=== PATIENT | male | born 1980 | race Caucasian/White ===

== ENCOUNTER 2018-06-14 07:00 | Day surgery (SDC) | payer OTHER ==
[~2018-06-14] VITALS: Ht 175.3 cm; Wt 96.2 kg
[~2018-06-14 07:00] MED LIST: NORCO 10-325 T1 EACH PO
--- NOTE | 2018-06-14 09:50 | NUR ---
06/14/18 0950 Latasha Soriano 0932 PATIENT ARRIVES TO PACU UNRESPONSIVE TO VERBAL OR PAINFUL STIMULI. RESP EVEN AND UNLABORED, MASK AT 10 LITERS, DECREASED TO 6 LITERS AFTER ARRIVAL TO PACU.
--- NOTE | 2018-06-14 10:10 | NUR ---
PT IS BACK TO FROM PACU. HE IS ACCOMPANIED BY [facility]SPORT OFFICER. HE IS AWAKE AND REQUESTING SPRITE AND CRACKERS. NO C/O'S PAIN. NO OTHER C/O'S AT THIS TIME. WILL REASSESS WITHIN THE HOUR.
[2018-06-14] MEDS ORDERED: ULTRAM50 MG PO (10:33)
--- NOTE | 2018-06-14 11:08 | NUR ---
PT REPORTS THAT HE IS READY TO GO. HE WOULD LIKE TO MAKE IT BACK TO [facility] BY LUNCH. NO OTHER C/O'S AT THIS TIME. WILL GET READY TO DC PATIENT.
--- NOTE | 2018-06-14 11:23 | NUR ---
PT IS GIVEN DC INSTRUCTIONS, HE VERBALIZES UNDERSTANDING. HE IS TAKEN OUT VIA WHEELCHAIR BY [facility]. REPORT IS CALLED TO [facility].
--- NOTE | 2018-06-16 07:04 | OR ---
[facility] [address], [place] [address] Signed DATE OF OPERATION: 06/14/2018 SURGEON: Keith Soria MD PREOPERATIVE DIAGNOSIS: Medial meniscal tear, right knee. POSTOPERATIVE DIAGNOSIS: Medial meniscal tear and partial tear of the ACL graft right knee with osteophyte formation in the apex of the intercondylar notch right knee. PROCEDURES: Right knee arthroscopy with partial medial meniscectomy, debridement of partial ACL tear and revision notchplasty. ANESTHESIA: General. SPECIMENS AND COMPLICATIONS: There were no specimens or complications. TOURNIQUET TIME: About 20 minutes. WHAT WAS DONE: The patient was taken to the operating room. After anesthesia was induced and airway secured, the patient was positioned, prepped and draped in a routine sterile fashion. The leg was exsanguinated with an Esmarch bandage. Pneumatic tourniquet was inflated to 300 mmHg pressure. The outflow cannula was inserted superomedially and the arthroscope anterolaterally. An anteromedial portal was created using transillumination and localization with a spinal needle. A nerve hook was introduced. Inspection of the knee revealed an unremarkable suprapatellar pouch. The medial recess was unremarkable. Medial compartment revealed a flap tear of the posterior horn of the medial meniscus right at the periphery. Intercondylar notch revealed some tearing of a portion of the previously placed ACL graft with some new impingement from new tissue ingrowth in the apex of the notch, which coli was impinging on the anterior wrap. However in about 30 degrees of flexion. He still had a completely negative Srikanth and the pivot shift maneuver was negative. Lateral compartment and lateral recess were unremarkable. We then returned the scope to the intercondylar notch. The motorized shaver was then introduced and we did a generous resection of the loose fibers of the ACL graft. We Electronically Signed By: KEITH SORIA MD 06/16/18 0704 PATIENT NAME: BIRGIT [facility]IS[facility] OPERATIVE REPORT DATE OF : 78 REPORT #: [id number] PHYSICIAN: KEITH SORIA MD PCP: EMEKA BRANTLEY MD REPORT IS CONFIDENTIAL AND NOT TO BE RELEASED WITHOUT AUTHORIZATION [facility] [address], [place] [address] Signed then used the motorized shaver and then a yolanda to revisit the notchplasty. However, most of the tissue ingrowth was really fibrous tissue growing in the apex of the notch. This was removed and then we could extend the knee fully without having any graft impingement. We then returned the scope to the medial compartment. Using basket forceps to complete the medial meniscal tear and then used a motorized shaver to debride the edges and shape and contour them, as well as to morselize the fragments resected and suck them out of the joint. He was copiously irrigated and drained. The portals were closed and sterile dressings applied. The patient was awakened and taken to recovery room, where he arrived in stable condition. Counts were correct and antibiotic protocols were followed. Keith Soria MD WFB/MODL /[id number] Copies: ~ Electronically Signed By: KEITH SORIA MD 06/16/18 0704 PATIENT NAME: BIRGIT K[facility]IS[facility] OPERATIVE REPORT DATE OF : 78 REPORT #: [id number] PHYSICIAN: KEITH SORIA MD PCP: EMEKA BRANTLEY MD REPORT IS CONFIDENTIAL AND NOT TO BE RELEASED WITHOUT AUTHORIZATION
== END 2018-06-14 11:15 | disposition home or self-care (01) ==
LOC: DS 07:00 → OPS 07:00 → DS 08:45 → OPS 08:45
PROVIDERS: Orthopaedic Surgery
PROC: 0SBC4ZZ Excision of Right Knee Joint, Percutaneous Endoscopic Approach (ICD-10-PCS; principal; 2018-06-14 08:45)
DX: S83.241A Other tear of medial meniscus, current injury, right knee, initial encounter (principal); X58.XXXA Exposure to other specified factors, initial encounter; Z87.891 Personal history of nicotine dependence
CPT/HCPCS: 01400; J0690; J1100; J1885; J2250; J2405; J3010; J7120